=== PATIENT | female | born 1970 | race Hispanic/Latino ===

== ENCOUNTER 2019-02-18 07:41 | Emergency (ER) | payer OTHER ==
[2019-02-18] MEDS ORDERED: MECLIZINE HCL 25 MG TABLET ONE (08:02)
[2019-02-18] MEDS ORDERED: ONDANSETRON ODT 4 MG TAB ONE (08:03)
== END 2019-02-18 10:06 ==
LOC: EDH 07:41
DX: H81.10 Benign paroxysmal vertigo, unspecified ear (principal)
CPT/HCPCS: 93005